=== PATIENT | male | born 1960 | race Caucasian/White ===

== ENCOUNTER → 2022-09-24 15:15 | Outpatient (BNVA) | payer OTHER, SELFPAY | PROVIDERS: PCP Internal Medicine; Visit Provider Urology | DX: Z13.89 Encounter for screening for other disorder (principal) ==

== ENCOUNTER → 2022-10-22 08:22 | Outpatient (BNVA) | payer OTHER, SELFPAY | PROVIDERS: PCP Internal Medicine; Visit Provider Urology | DX: Z13.89 Encounter for screening for other disorder (principal) ==

== ENCOUNTER 2023-06-01 08:39 | Outpatient (AMB) | payer OTHER, SELFPAY ==
--- NOTE | 2023-06-01 08:43 | A.OFFVIS_ITS ---
Intake Intake Visit Reasons: Follow up/labs(SET) Intake Note: Patient presents for follow up erectile dysfunction/elevated psa/labs (psa 3.1) (testosterone 400) Urology Medications: Finasteride, Tadalafil Blood Thinner: None Litigation Attorney Required: No Accompanied by: Self / Same As Patient Allergies No Known Allergies Allergy (Verified 06/01/23 20:58) Medication List - Last Reconciled 06/01/23 by YONI Ritchie allopurinol 100 mg PO DAILY amlodipine 5 mg PO DAILY finasteride 5 mg PO DAILY 90 days rosuvastatin 20 mg PO DAILY tadalafil 5 mg PO DAILY 90 days tadalafil (Cialis) 20 mg PO DAILY PRN 90 days HPI HPI Comments History of Present Illness Details Johnny is a very pleasant 62 year old male patient of Dr. Herrera. He has a past medical history of Hodgkin's lymphoma. He presents to the office today for follow-up of his elevated PSA and erectile dysfunction. In discussion with the patient today reports to be doing and feeling well. Recent labs reviewed with the patient today. PSAs are as follows: 05/04--8.5, 09/03--7.6, 03/05--3.1 Testosterone 03/05--400, SHBG--29.5, free testosterone 8.23. When asked patient reports compliance with 5 mg of Cialis daily and 5mg of Finasteride. He reports he continues with erectile dysfunction despite 5 mg of tadalafil daily. Discussed additional dosing p.r.n. 1 hour prior to sexual activity. Patient otherwise denies any bothersome urinary issues or concerns at this time. He reports to be happy with current voiding parameters. PREVIOUS OFFICE NOTE INFORMATION------- Hypogonadism Prior Labs - 10/05 T 326 F 7.4 - LH 5.4 Elevated PSA Prior evaluation in number of years ago At that point in time had responded to finasteride Current therapy finasteride daily Discussed factors that can lead to short-term elevation PSA 05/04 8.5, 09/03 7.6 Imaging - MRI 09/03 50 g prostate, no clear susp icious region PFSH Medical History Hodgkin's lymphoma Review of Systems Const Reports as per HPI Eyes Reports no additional complaints ENT Reports no additional complaints Card Reports no additional complaints Resp Reports no additional complaints GI Reports no additional complaints Reports as per HPI Musc Reports no additional complaints Neuro Reports no additional complaints Psych Reports no additional complaints Endo Reports no additional complaints Haroon/Lymph Reports as per HPI Physical Exam Const General: cooperative, healthy appearing, comfortable, no acute distress, well developed, alert and awake Orientation/consciousness: patient oriented x3 HEENT Head: Yes normal to inspection, Yes normocephalic and Yes atraumatic Ears: hearing grossly normal bilaterally Eyes General: appearance normal, both eyes and all related structures Neck Neck: Yes normal visual inspection and Yes trachea midline Chest Chest palpation & inspection: normal inspection of the chest Resp Effort & Inspection: normal respiratory effort and able to speak in complete sentences Cardio Rate: regular rate GI Inspection: Yes normal to inspection General: Yes no CVA tenderness Back/Spine/Pelvis Back: no CVA tenderness Skin General skin exam: no rashes or lesions noted Neuro General: patient oriented x3 Extrem General: Yes normal to inspection Psych Appearance: grossly normal and well kempt Mental Status: mental status grossly normal Speech and movement: Normal speech and movement present and Clear speech present Affect: normal affect Attitude: cooperative Thought process: Normal thought process present Thought content: Normal thought content present Insight: Fair insight present (Psych) Judgement: Fair judgement present (Psych) Results AMB Urinalysis, Automated UA Leukoctes 0 Vi/uL Last Edit by [employer] on 06/01/23 08:58 UA Nitrite Negative Last Edit by [employer] on 06/01/23 08:58 UA Urobilinogen 0.2 mg/dL Last Edit by [employer] on 06/01/23 08:58 UA Protein 0 mg/dL Last Edit by [employer] on 06/01/23 08:58 UA pH 6.0 Last Edit by [employer] on 06/01/23 08:58 UA Blood 0 Thomas/uL Last Edit by [employer] on 06/01/23 08:58 UA Specific [place] 1.020 Last Edit by [employer] on 06/01/23 08:58 UA Ketone Negative Last Edit by [employer] on 06/01/23 08:58 UA Bilirubin 0 mg/dL Last Edit by [employer] on 06/01/23 08:58 UA Glucose 0 mg/dL Last Edit by Samuel Gomez on 06/01/23 08:58 Results Reviewed Results Reviewed: Laboratory Last Values Urine pH (Auto) 6.0 06/01/23 08:45 Specific [place] (Auto) 1.020 06/01/23 08:45 Urine Protein (Auto) 0 mg/dL 06/01/23 08:45 Glucose (UA)(Auto) 0 mg/dL 06/01/23 08:45 Urine Ketones (Auto) Negative 06/01/23 08:45 Urine Blood (Auto) 0 Thomas/uL 06/01/23 08:45 Urine Nitrite (Auto) Negative 06/01/23 08:45 Urine Bilirubin (Auto) 0 mg/dL 06/01/23 08:45 Urine Urobilinogen (Auto) 0.2 mg/dL 06/01/23 08:45 Leukocyte Esterase (Auto) 0 Vi/uL 06/01/23 08:45 Assessment & Plan Assessment & Plan (1) Erectile dysfunction: Code(s): N52.9 - Male erectile dysfunction, unspecified Plan In office urinalysis results reviewed with the patient today. Recent labs (PSA, SHBG, total testosterone and free testosterone results) reviewed with the patient today; as noted above. Discussed at length potential causes for elevated PSA. Continue 5 mg of Cialis and 5 mg of finasteride as prescribed. Prescription provided for p.r.n. Cialis on demand 1 hour prior to sexual activity. Discussed at length lifestyle modifications for improvement in erectile dysfunction as well as overall health and well-being. Patient denies any bothersome urinary issues or concerns at this time. He is happy with current voiding parameters. Will obtain PSA and testosterone levels prior to next appointment. Follow-up in 6 months with labs to be completed prior; or sooner with any issues, concerns, and or questions. Orders: Orders AMB Urinalysis Automated Today Z13.9 - Encounter for screening, unspecified PSA,Total (Free>4and<10) 6 Months R97.20 - Elevated prostate specific antigen [PSA] Testosterone, Free/Total 6 Months N52.9 - Male erectile dysfunction, unspecified, R68.82 - Decreased libido Medications: New tadalafil (Cialis) [facility] [id number] [facility] Group DR33 20 mg PO DAILY 90 days PRN 45 tabs 3RF sexual activity Patient Instructions: The patient had an opportunity to ask questions regarding the treatment plan. All questions were answered. Physical exam, labs, and imaging were discussed and reviewed in detail. As well as risks, benefits, and discussion of treatment choices. No major barriers to understanding were identified. The patient expressed understanding and agreement with the above treatment plan. The patient was made aware they should contact our office by phone for worsening of their current condition, the appearance of new symptoms, or with any questions or concerns. Compliance is encouraged with any medications and follow up testing that is ordered. It is a privilege to be allowed the opportunity to participate in? your urological care.? Again, if you have any questions or concerns If you have any questions or concerns please do not hesitate to contact me. The office is [phone]. This note is constructed using voice recognition software. While every effort has been made to ensure accuracy lodge officer errors may have been included. Yours sincerely, YONI Ritchie Coding Level of Care Code Est Pt Level 4 (13461) Diagnoses Erectile dysfunction N52.9
== END 2023-06-01 09:21 | disposition home or self-care (01) ==
PROVIDERS: PCP Internal Medicine; Visit Provider Nurse Practitioner Family
DX: N52.9 Male erectile dysfunction, unspecified (principal)
CPT/HCPCS: 99214

== ENCOUNTER → 2023-06-01 08:39 | Outpatient (BNVA) | payer OTHER, SELFPAY | PROVIDERS: PCP Internal Medicine; Visit Provider Nurse Practitioner Family | DX: N52.9 Male erectile dysfunction, unspecified (principal); R97.20 Elevated prostate specific antigen [PSA]; Z79.899 Other long term (current) drug therapy | CPT/HCPCS: 81003 ==

== ENCOUNTER 2023-11-30 08:03 | Outpatient (AMB) | payer OTHER, SELFPAY ==
--- NOTE | 2023-11-30 08:05 | MHC.OFFVIS ---
Intake Intake Visit Reasons: 6mo/ PSA(set) Intake Note: Patient presents today for a follow-up on PSA Meds- Tadalafil, Finasteride Allergies to Antibiotic- No Known Allergies Blood Thinner- None Post Void Residual:15ml Natural Remedy Consultant Required: No Accompanied by: Self / Same As Patient Allergies No Known Allergies Allergy (Verified 06/01/23 20:58) Medication List - Last Reconciled 11/30/23 by GRETEL Ritchie- allopurinol 100 mg PO DAILY amlodipine 5 mg PO DAILY finasteride 5 mg PO DAILY 90 days rosuvastatin 20 mg PO DAILY tadalafil (Cialis) 20 mg PO DAILY PRN 90 days tadalafil 5 mg PO DAILY 90 days HPI HPI Comments History of Present Illness Details Johnny is a very pleasant 63 year old male patient of Dr. Herrera. He has a past medical history of Hodgkin's lymphoma. He presents to the office today for follow-up of his elevated PSA and erectile dysfunction. In discussion with the patient today reports to be doing and feeling well. Recent labs reviewed with the patient today. PSAs are as follows: 05/04--8.5, 09/03--7.6, 03/05--3.1, 12/04 4.6 Testosterone 03/05--400, SHBG--29.5, free testosterone 8.23, Testosterone 12/04 339. When asked patient reports compliance with 5 mg of Cialis daily and 5mg of Finasteride. Discussed elevation in PSA in comparison to 6 months ago. Discussed further assessment evaluation with redraw of PSA verses MRI of the prostate verses surveillance monitoring. When asked he does report somewhat improvement in erectile dysfunction with 5 mg of Cialis daily in additional dosing 1 hour prior to sexual activity. When asked he does report noting episodes of nocturia however is drinking up to and prior to bed. He also reports noting to be more tired throughout the day and upon wakening. Discussed potential causes of these issues. Discussed and stressed the importance of healthy eating habits, increased activity, and weight management. When asked he denies urinary urgency, urinary frequency, incontinence, hematuria, dysuria, foul smelling urine, changes to urinary stream, flank pain, fever, and or chills. He is happy with his current voiding parameters. He otherwise denies any other issues or concerns at this time. PREVIOUS OFFICE NOTE INFORMATION------- Hypogonadism Prior Labs - 10/05 T 326 F 7.4 - LH 5.4 Elevated PSA Prior evaluation in number of years ago At that point in time had responded to finasteride Current therapy finasteride daily Discussed factors that can lead to short-term elevation PSA 05/04 8.5, 09/03 7.6 Imaging - MRI 09/03 50 g prostate, no clear suspicious region. [facility] Medical History Hodgkin's lymphoma Review of Systems Const Reports as per HPI Eyes Reports no additional complaints ENT Reports no additional complaints Card Reports no additional complaints Resp Reports no additional complaints GI Reports no additional complaints Reports as per HPI Musc Reports no additional complaints Neuro Reports no additional complaints Psych Reports no additional complaints Endo Reports no additional complaints Haroon/Lymph Reports as per HPI Physical Exam Const General: cooperative, healthy appearing, comfortable, no acute distress, well developed, alert and awake Orientation/consciousness: patient oriented x3 HEENT Head: Yes normal to inspection, Yes normocephalic and Yes atraumatic Ears: hearing grossly normal bilaterally Eyes General: appearance normal, both eyes and all related structures Neck Neck: Yes normal visual inspection and Yes trachea midline Chest Chest palpation & inspection: normal inspection of the chest Resp Effort & Inspection: normal respiratory effort and able to speak in complete sentences Cardio Rate: regular rate GI Inspection: Yes normal to inspection General: Yes no CVA tenderness Back/Spine/Pelvis Back: no CVA tenderness Skin General skin exam: no rashes or lesions noted Neuro General: patient oriented x3 Extrem General: Yes normal to inspection Psych Appearance: grossly normal and well kempt Mental Status: mental status grossly normal Speech and movement: Normal speech and movement present and Clear speech present Affect: normal affect Attitude: cooperative Thought process: Normal thought process present Thought content: Normal thought content present Insight: Fair insight present (Psych) Judgement: Fair judgement present (Psych) Office Procedures Post Void Residual Post Residual Void Post Void Residual (PVR): 15 [id number] Void Residual by ultrasound Results AMB Urinalysis, Automated UA Leukoctes 0 Vi/uL Last Edit by Rosaura Colin CMA on 11/30/23 08:20 UA Nitrite Negative Last Edit by Rosaura Colin CMA on 11/30/23 08:20 UA Urobilinogen 0.2 mg/dL Last Edit by Rosaura Colin, LEAD INFRASTRUCTURE ARCHITECT on 11/30/23 08:20 UA Protein 0 mg/dL Last Edit by Rosaura Colin, LEAD INFRASTRUCTURE ARCHITECT on 11/30/23 08:20 UA pH 6.0 Last Edit by Rosaura Colin, [facility] on 11/30/23 08:20 UA Blood 0 Thomas/uL Last Edit by Rosaura Colin, [facility] on 11/30/23 08:20 UA Specific [place] 1.015 Last Edit by Rosaura Colin, [facility] on 11/30/23 08:20 UA Ketone Negative Last Edit by Rosaura Colin, LEAD INFRASTRUCTURE ARCHITECT on 11/30/23 08:20 UA Bilirubin 0 mg/dL Last Edit by Rosaura Colin, LEAD INFRASTRUCTURE ARCHITECT on 11/30/23 08:20 UA Glucose 0 mg/dL Last Edit by Rosaura Colin [facility] on 11/30/23 08:20 Results Reviewed Results Reviewed: Laboratory Last Values Urine pH (Auto) 6.0 11/30/23 08:19 Specific [place] (Auto) 1.015 11/30/23 08:19 Urine Protein (Auto) 0 mg/dL 11/30/23 08:19 Glucose (UA)(Auto) 0 mg/dL 11/30/23 08:19 Urine Ketones (Auto) Negative 11/30/23 08:19 Urine Blood (Auto) 0 Thomas/uL 11/30/23 08:19 Urine Nitrite (Auto) Negative 11/30/23 08:19 Urine Bilirubin (Auto) 0 mg/dL 11/30/23 08:19 Urine Urobilinogen (Auto) 0.2 mg/dL 11/30/23 08:19 Leukocyte Esterase (Auto) 0 Vi/uL 11/30/23 08:19 Assessment & Plan Assessment & Plan (1) Erectile dysfunction: Code(s): N52.9 - Male erectile dysfunction, unspecified (2) Low libido: Code(s): R68.82 - Decreased libido (3) Elevated PSA: Code(s): R97.20 - Elevated prostate specific antigen [PSA] (4) Nocturia: Code(s): R35.1 - Nocturia Plan In office urinalysis results reviewed with the patient today; as noted above. PVR 15 mL. Recent PSA and testosterone results reviewed with the patient today; as noted above. Discussed at length importance of limiting fluids prior to bed to assist with decreasing episodes of nocturia. Discussed lifestyle modifications to assist with ED and fatigue Continue finasteride and Cialis as prescribed Continue p.r.n. dosing 1 hour prior to sexual activity as discussed and prescribed. Discussed at length elevation in PSA compared to previous PSA; however PSA has been higher when reviewing trends. Discussed further treatment options of elevation in PSA with surveillance monitoring verses redraw of PSA verses MRI of the prostate. Discussed obtaining possible retroperitoneal ultrasound for further assessment evaluation. Will reassess PSA in 4 months. Follow-up in 4 months with lab to be completed prior; or sooner with any issues, concerns, and or questions. Orders: Orders AMB Urinalysis Automated Today R33.9 - Retention of urine, unspecified AMB Post Void Residual by ultrasound Today R33.9 - Retention of urine, unspecified Prostate Specific Antigen 4 Months R97.20 - Elevated prostate specific antigen [PSA] Medications: Refilled finasteride 5 mg PO DAILY 90 days 90 tabs 3RF N13.8 - Other obstructive and reflux uropathy, N32.0 - Bladder-neck obstruction, N40.1 - Benign prostatic hyperplasia with lower urinary tract symptoms, R33.9 - Retention of urine, unspecified tadalafil (Cialis) [facility] [place] [id number] [facility] Group DR33 20 mg PO DAILY 90 days PRN 45 tabs 3RF sexual activity tadalafil 5 mg PO DAILY 90 days 90 tabs 1RF sexual activity N52.01 - Erectile dysfunction due to arterial insufficiency, R68.82 - Decreased libido Patient Instructions: The patient had an opportunity to ask questions regarding the treatment plan. All questions were answered. Physical exam, labs, and imaging were discussed and reviewed in detail. As well as risks, benefits, and discussion of treatment choices. No major barriers to understanding were identified. The patient expressed understanding and agreement with the above treatment plan. The patient was made aware they should contact our office by phone for worsening of their current condition, the appearance of new symptoms, or with any questions or concerns. Compliance is encouraged with any medications and follow up testing that is ordered. It is a privilege to be allowed the opportunity to participate in? your urological care.? Again, if you have any questions or concerns If you have any questions or concerns please do not hesitate to contact me. The office is [phone]. This note is constructed using voice recognition software. While every effort has been made to ensure accuracy four h club agent errors may have been included. Yours sincerely, YONI Ritchie Coding Level of Care Code Est Pt Level 3 (08058) Diagnoses Erectile dysfunction N52.9 Low libido R68.82 Elevated PSA R97.20 Nocturia R35.1 CPT Codes Post Residual Void - PVR CPT Code: [id number]-[id number] Void Residual by ultrasound ([id number])
== END 2023-11-30 09:07 | disposition home or self-care (01) ==
PROVIDERS: PCP Internal Medicine; Visit Provider Nurse Practitioner Family
DX: N52.9 Male erectile dysfunction, unspecified (principal); R68.82 Decreased libido; R97.20 Elevated prostate specific antigen [PSA]; R35.1 Nocturia; R33.9 Retention of urine, unspecified
CPT/HCPCS: 99213

== ENCOUNTER → 2023-11-30 08:03 | Outpatient (BNVA) | payer OTHER, SELFPAY | PROVIDERS: PCP Internal Medicine; Visit Provider Nurse Practitioner Family | DX: N52.9 Male erectile dysfunction, unspecified (principal); R68.82 Decreased libido; R97.20 Elevated prostate specific antigen [PSA]; R35.1 Nocturia; R33.9 Retention of urine, unspecified; Z79.899 Other long term (current) drug therapy | CPT/HCPCS: 51798; 81003 ==

== ENCOUNTER 2024-12-25 07:43 | Outpatient (AMB) | payer OTHER, SELFPAY ==
--- NOTE | 2024-12-25 07:43 | A.OFFVIS_ITS ---
Intake Visit Reasons: 1y follow up/ High PSA(set) Intake Note: Patient presents today for tele visit follow-up on: Elevated PSA PSA: 11.3 Meds- Tadalafil, Finasteride (patient stated that he stopped finasteride) Allergies to Antibiotic- No Known Allergies Blood Thinner- None Project Specialist Required: No Accompanied by: Self / Same As Patient Allergies No Known Allergies Allergy (Verified 12/25/24 07:59) Medication List - Last Reconciled 12/25/24 by GRETEL Ritchie- allopurinol 100 mg PO DAILY amlodipine 5 mg PO DAILY rosuvastatin 20 mg PO DAILY tadalafil (Cialis) 20 mg PO DAILY PRN 90 days tadalafil 5 mg PO DAILY 90 days HPI Comments Details: Johnny is a very pleasant 64 year old male patient of Dr. Hrerera. He has a past medical history of Hodgkin's lymphoma. He is being followed up on today via video telehealth for his elevated PSA and erectile dysfunction. In discussion with the patient today he reports having had to reschedule his appointment due to respiratory and cardiac issues he had been experiencing late last year. He discusses having recently started Lasix for potential dilated cardiomyopathy with cardiology and continues to follow-up as scheduled. He reports noting episodes of urinary urgency and frequency in relation to Lasix. He also reports noting urinary dribbling upon morning urination he otherwise denies hematuria, dysuria, foul smelling urine, changes to urinary stream, flank pain, fever, and or chills. He is happy with his current voiding parameters. Recent PSA results were reviewed with the patient today as noted and trended below: PSA: 05/04 8.5, 09/03 7.6, 03/05 3.1, 12/04 4.6, 12/05 11.3 Testosterone 03/05 400, SHBG 29.5, free testosterone 8.23, Testosterone 12/04 339. In discussion with the patient today he reports having stopped Finasteride. We discussed potential causes of elevated PSA. Patient with a previous history of prostate MRI 09/03 that noted seminal vesicles within normal limits, the prostate capsule is intact. No suspicious signal in the region of the neurovascular bundle. No disruption to the fascicle planes between the prostate and the rectum. No focal finding to strongly suggest a site of clinical signi ficant prostate cancer. No evidence of extraprostatic extension. No regional metastasis were identified on the study. Overall PI-RADS category 2. He discusses his longstanding history of elevated PSAs with variability and believes this is related to his Hodgkin's lymphoma. We discussed repeat in MRI as well as further treatment options to include prostate biopsy and or surveillance monitoring. Risks and benefits of these as for mentioned interventions were discussed in detail. [facility] Medical History Hodgkin's lymphoma Review of Systems Const Reports as per HPI Eyes Reports no additional complaints ENT Reports no additional complaints Card Reports as per HPI Resp Reports no additional complaints GI Reports no additional complaints Reports as per HPI Musc Reports no additional complaints Neuro Reports no additional complaints Psych Reports no additional complaints Endo Reports no additional complaints Haroon/Lymph Reports as per HPI Physical Exam Const General: cooperative, healthy appearing, comfortable, no acute distress, well developed, alert and awake Orientation/consciousness: patient oriented x3 Resp Effort & Inspection: normal respiratory effort and able to speak in complete sentences Neuro General: patient oriented x3 Psych Appearance: grossly normal Mental Status: mental status grossly normal Speech and movement: Clear speech present Affect: normal affect Attitude: cooperative Thought process: Normal thought process present Thought content: Normal thought content present Insight: Fair insight present (Psych) Judgement: Fair judgement present (Psych) Telehealth Telehealth Telehealth Platform: [facility] Location of provider rendering services: practice address Location of patient: address on file Patient Identification confirmed using: Name, : Yes Telehealth method: video Patient verbally consented to treatment: Yes Patient verbally consented to billing insurance company: Yes Patient informed of any privacy concerns related to visit: Yes Minutes spent on Phone/Video with Pt.: 15 Assessment & Plan Assessment & Plan (1) Elevated PSA: Code(s): R97.20 - Elevated prostate specific antigen [PSA] Category: Medical (2) Urinary dribbling: Code(s): N39.43 - Post-void dribbling Category: Medical Plan We discussed at length potential causes of elevated PSA as well as further treatment options and risks and benefits of these treatment options. Restart finasteride as discussed Will obtain redraw of PSA with no sex the night before, no caffeine morning of, and no heavy lifting 1-2 days prior. We discussed pelvic floor exercises for urinary dribbling. Will obtain MRI for further assessment evaluation. Follow-up in 1-2 months with imaging and PSA to be completed prior; or sooner with any issues, concerns, and or questions Orders: Orders PSA,Total (Free>4and<10) Today R97.20 - Elevated prostate specific antigen [PSA] MR pelvis wo/w con Today C61 - Malignant neoplasm of prostate Medications: Refilled finasteride 5 mg PO DAILY 90 tabs 3RF 90 days N13.8 - Other obstructive and reflux uropathy, N32.0 - Bladder-neck obstruction, N40.1 - Benign prostatic hyperplasia with lower urinary tract symptoms, R33.9 - Retention of urine, unspecified Patient Instructions: The patient had an opportunity to ask questions regarding the treatment plan. All questions were answered. Physical exam, labs, and imaging were discussed and reviewed in detail. As well as risks, benefits, and discussion of treatment choices. No major barriers to understanding were identified. The patient expressed understanding and agreement with the above treatment plan. The patient was made aware they should contact our office by phone for worsening of their current condition, the appearance of new symptoms, or with any questions or concerns. Compliance is encouraged with any medications and follow up testing that is ordered. It is a privilege to be allowed the opportunity to participate in? your urological care.? Again, if you have any questions or concerns If you have any questions or concerns please do not hesitate to contact me. The office is [phone]. This note is constructed using voice recognition software. While every effort has been made to ensure accuracy fly tier errors may have been included. Yours sincerely, YONI Ritchie Coding Level of Care Code Tele Est Pt Level 3 (51549) Complex EM visit Add On G2211 Diagnoses Elevated PSA R97.20 Urinary dribbling N39.43
--- OUTSIDE RECORDS SUMMARY | 2024-12-25 07:45 | XMS_ITS | Clinical Summary ---
Author Organization [facility] Address [address] [place] [address] Care Team Providers Care Lubrication Servicer Name Role Phone John Herrera MD Primary Care Provider Allergies No known active allergies Medications Medication Sig Dispensed Refills Start Date End Date Status amLODIPine (NORVASC) tablet 5 mg Take 5 mg by mouth daily. 0 Active Multiple Vitamin (MULTI VITAMIN DAILY PO) Take by mouth. 0 Act austyn pravastatin (PRAVACHOL) tablet 40 mg Take 40 mg by mouth daily. 0 Active NIFEdipine (PROCARDIA) 10 MG capsule Take 10 mg by mouth 3 (three) times a day. 0 Active Active Problems No known active problems Social History Tobacco Use Types Packs/Day Years Used Date Smoking Tobacco: Never Assessed Sex and Gender Information Value Date Recorded Sex Assigned at Not on file Gender Identity Not on file Sexual Orientation Not on file Last Filed Vital Signs Vital Sign Reading Time Taken Comments Blood Pressure 134/93 10/18/2017 10:51 AM EST Pulse 84 10/18/2017 10:51 AM EST Temperature - - Respiratory Rate - - Oxygen Saturation - - Inhaled Oxygen Concentration - - Weight 104.8 kg (231 lb) 10/18/2017 10:51 AM EST Height 188 cm (6' 2 ) 10/18/2017 10:51 AM EST Body Mass Index 29.66 10/18/2017 10:51 AM EST Plan of Treatment Health Maintenance Due Date Last Done Comments Hepatitis C Screening 1962 COVID-19 Vaccine (#1) 1962 Depression Screening 1974 Preventative Health Evaluation 1980 DTap / Tdap / Td (1 - Tdap) 1981 Colon Cancer Screening (Colonoscopy) 2007 Shingrix-Zoster Vaccine (1 of 2) 2012 Influenza Vaccine (#1) 2024 RSV Adult > 60+ Yrs or Pregn ant (1 - 1-dose 75+ series) 2037 Hepatitis B Vaccines Aged Out No long er eligible based on patient's age to complete this topic Pneumococcal Vaccine Aged Out No long er eligible based on patient's age to complete this topic RSV Ped < 20 months Aged Out No longe r eligible based on patient's age to complete this topic Care Teams Lubrication Servicer Relationship Specialty Start Date End Date John Herrera MD PCP - General Internal Medicine 04/13/17
== END 2024-12-25 09:06 | disposition home or self-care (01) ==
LOC: HO.HUSH 07:43
PROVIDERS: PCP Internal Medicine; Visit Provider Nurse Practitioner Family
DX: R97.20 Elevated prostate specific antigen [PSA] (principal); N39.43 Post-void dribbling
CPT/HCPCS: 99213

== ENCOUNTER → 2024-12-25 07:43 | Outpatient (BNVA) | payer OTHER, SELFPAY | PROVIDERS: PCP Internal Medicine; Visit Provider Nurse Practitioner Family ==

== ENCOUNTER → 2025-01-09 08:17 | Outpatient (BNV) | payer OTHER, SELFPAY | PROVIDERS: PCP Internal Medicine; Visit Provider Radiology Diagnostic Radiology | DX: C61 Malignant neoplasm of prostate (principal) | CPT/HCPCS: 72197 ==

== ENCOUNTER 2025-01-09 08:25 | Outpatient (REF) | payer OTHER, SELFPAY ==
--- NOTE | ~2025-01-09 | MR_ITS ---
EXAMINATION: MR PROSTATE WITHOUT THEN WITH IV CONTRAST HISTORY: C61 - Malignant neoplasm of prostate TECHNIQUE: 1.5T body coil survey of the pelvis was performed. Phase array coil imaging of the prostate was performed in multiplanar high resolution axial, coronal, sagittal fast spin echo T2 and axial T1 weighted imaging sequences. Axial diffusion imaging at intermediate and high field performed with ADC mapping. Next, mL Gadavist was given by intravenous infusion, and dynamic axial imaging performed. COMPARISON: There are no prior studies for comparison. CLINICAL DATA: Most recent PSA: 11.3 ng/mL on 11/28/2024. PSA Density: 0.25 ng/mL squared Prostate Biopsy: None reported FINDINGS: Prostate size: 4.6 x 4.6 x 3.1 cm. Calculated prostate volume is 45.1 mL. Hemorrhage: None. Transitional Zone: There is moderate heterogeneous nodular hypertrophy of the transitional zone. Peripheral Zone: There are numerous linear foci of decreased T2 signal intensity within the peripheral zone which can be seen in the setting of prostatitis of scarring. There is a 1.5 cm focus of abnormal signal intensity in the anterior aspect of the right peripheral zone in the mid gland (series 7, image 26) with imaging characteristics as follows: Lesion #1: DWI PI-RADS v2.1 score: 5 T2 PI-RADS v2.1 score: 5 DCE PI-RADS v2.1 score: - Overall PI-RADS v2.1 score: 5 Capsular contact: yes Extracapsular extension: No definite Seminal vesicle invasion: None Neurovascular bundle involvement: None Seminal Vesicles/Ejaculatory Ducts: Symmetric and normal in signal and caliber. Pelvic Lymph Nodes: No obturator or internal iliac lymph nodes meeting size criteria for adenopathy. Marrow Signal: Normal marrow signal and enhancement without focal lesion identified. MR/MR Prostate wo/w con IMPRESSION: Focus of abnormal signal intensity in the right anterior peripheral zone in the mid gland are suspicious for clinically significant prostate carcinoma. PI-RADS 5: Very high (clinically significant cancer is highly likely to be present) PI-RADS Assessment Categories PI-RADS 1: Very low (clinically significant cancer is highly unlikely to be present) PI-RADS 2: Low (clinically significant cancer is unlikely to be present) PI-RADS 3: Intermediate (the presence of clinically significant cancer is equivocal) PI-RADS 4: High (clinically significant cancer is likely to be present) PI-RADS 5: Very high (clinically significant cancer is highly likely to be present) [employer]. MR Prostate Imaging Reporting and Data System version 2.1. [email or web address] Electronically signed by: Adilson Mora MD 01/10/2025 01:57 PM EDT
--- OUTSIDE RECORDS SUMMARY | 2025-01-09 08:43 | XMS_ITS | Clinical Summary ---
Author Organization [facility] Address [address] [place] [address] Care Team Providers Care Acoustic Engineer Name Role Phone John Herrera MD Primary [...] age to complete this topic Care Teams Acoustic Engineer Relationship Specialty Start Date End Date John Herrera MD PCP - General Internal Medicine 04/13/17
[2025-01-09] MEDS: gadobutroL 10 ML VIAL IVPUSH (09:34)
== END 2025-01-09 08:26 | disposition home or self-care (01) ==
LOC: HO.MRI 08:25
PROVIDERS: PCP Internal Medicine; Visit Provider Nurse Practitioner Family
DX: C61 Malignant neoplasm of prostate (principal)
CPT/HCPCS: 72197; A9585

== ENCOUNTER 2025-02-12 07:42 | Outpatient (AMB) | payer OTHER, SELFPAY ==
--- NOTE | 2025-02-12 07:42 | A.OFFVIS_ITS ---
Intake Visit Reasons: 2 month/ MRI/PSA(set) Intake Note: Patient presents today for tele visit follow-up on: Elevated PSA and MRI results PSA: 6.5 Imaging Completed: 01/09/25 Meds: Tadalafil, Finasteride Allergies to Antibiotic- No Known Allergies Blood Thinner- None Sales Department Clerk Required: No Accompanied by: Self / Same As Patient Allergies No Known Allergies Allergy (Verified 02/12/25 13:49) Medication List - Last Reconciled 02/12/25 by GRETEL Ritchie- allopurinol 100 mg PO DAILY amlodipine 5 mg PO DAILY dapagliflozin propanediol (Farxiga) 10 mg PO DAILY finasteride 5 mg PO DAILY 90 days furosemide 20 mg PO DAILY losartan 25 mg PO DAILY rosuvastatin 40 mg PO DAILY tadalafil (Cialis) 20 mg PO DAILY PRN 90 days tadalafil 5 mg PO DAILY 90 days HPI Comments Details: Johnny is a very pleasant 64 year old male patient of Dr. Herrera. He has a past medical history of Hodgkin's lymphoma and dilated cardiomyopathy. He is being followed up on today via video telehealth for his elevated PSA and erectile dysfunction and is accompanied by his significant other Racquel at [facility] office visit. In discussion with the patient today reports to be doing and feeling well. Of note, patient was last seen approximately 2 months ago at which time an MRI of the prostate and redraw of PSA were ordered for further assessment evaluation. These results were reviewed and communicated with the patient and his significant other today. 01/05 focus of abnormal signal intensity in the right anterior peripheral zone in the mid gland suspicious for clinically significant prostate carcinoma. PSAs and labs are as follows: PSA: 05/04 8.5, 09/03 7.6, 03/05 3.1, 12/04 4.6, 12/05 11.3, 01/05 6.5 % free PSA 7.2. Testosterone 03/05 400, SHBG 29.5, free testosterone 8.23, Testosterone 12/04 339. We discussed at length potential causes of elevated PSA. He reports compliance with finasteride as prescribed. We discuss significant decrease in PSA over the last few weeks as well as variable/labile PSAs. He does continue to report issues with his erections. We did discussed further treatment options of ED and risks and benefits of these treatment options. Plan will be to revisit ED in the near future. We discussed further treatment options of labile/elevated PSA to include prostate biopsy verses targeted prostate biopsy verses surveillance monitoring. Risks and benefits of these interventions were discussed. Will proceed with targeted biopsy. When asked he does report noting episodes of urinary urgency and frequency however relates this to his Lasix he otherwise denies hematuria, dysuria, foul smelling urine, changes to urinary stream, flank pain, fever, and or chills. He is happy with his current voiding parameters. Patient with a previous history of prostate MRI 09/03 that noted seminal vesicles within normal limits, the prostate capsule is intact. No suspicious signal in the region of the neurovascular bundle. No disruption to the fascicle planes between the prostate and the rectum. No focal finding to strongly suggest a site of clinical significant prostate cancer. No evidence of extraprostatic extension. No regional metastasis were identified on the study. Overall PI-RADS category 2. He discusses his longstanding history of elevated PSAs with diann gould and believes this is related to his Hodgkin's lymphoma. All questions were answered. He otherwise offers no other issues or concerns at this time. [facility] Medical History Hodgkin's lymphoma Review of Systems Const Reports as per HPI Eyes Reports no additional complaints ENT Reports no additional complaints Card Reports as per HPI Resp Reports no additional complaints GI Reports no additional complaints Reports as per HPI Musc Reports no additional complaints Neuro Reports no additional complaints Psych Reports no additional complaints Endo Reports no additional complaints Haroon/Lymph Reports as per HPI Physical Exam Const General: cooperative, healthy appearing, comfortable, no acute distress, well developed, alert and awake Orientation/consciousness: patient oriented x3 Resp Effort & Inspection: normal respiratory effort and able to speak in complete sentences Neuro General: patient oriented x3 Psych Appearance: well kempt Speech and movement: Clear speech present Affect: normal affect Attitude: cooperative Thought content: Normal thought content present Insight: Fair insight present (Psych) Judgement: Fair judgement present (Psych) Telehealth Telehealth Telehealth Platform: [email or web address] Location of provider rendering services: practice address Patient Identification confirmed using: Name, : Yes Telehealth method: video Patient verbally consented to treatment: Yes Patient verbally consented to billing insurance company: Yes Patient informed of any privacy concerns related to visit: Yes Minutes spent on Phone/Video with Pt.: 20 Results Reviewed Results Reviewed: Date of Service: 01/09/25 Procedure(s): MR Prostate wo/w con FINDINGS: Prostate size: 4.6 x 4.6 x 3.1 cm. Calculated prostate volume is 45.1 mL. Hemorrhage: None. Transitional Zone: There is moderate heterogeneous nodular hypertrophy of the transitional zone. Peripheral Zone: There are numerous linear foci of decreased T2 signal intensity within the peripheral zone which can be seen in the setting of prostatitis of scarring. There is a 1.5 cm focus of abnormal signal intensity in the anterior aspect of the right peripheral zone in the mid gland (series 7, image 26) with imaging characteristics as follows: Lesion #1: DWI PI-RADS v2.1 score: 5 T2 PI-RADS v2.1 score: 5 DCE PI-RADS v2.1 score: - Overall PI-RADS v2.1 score: 5 Capsular contact: yes Extracapsular extension: No definite Seminal vesicle invasion: None Neurovascular bundle involvement: None Seminal Vesicles/Ejaculatory Ducts: Symmetric and normal in signal and caliber. Pelvic Lymph Nodes: No obturator or internal iliac lymph nodes meeting size criteria for adenopathy. Marrow Signal: Normal marrow signal and enhancement without focal lesion identified. IMPRESSION: Focus of abnormal signal intensity in the right anterior peripheral zone in the mid gland are suspicious for clinically significant prostate carcinoma. PI-RADS 5: Very high (clinically significant cancer is highly likely to be present) PI-RADS Assessment Categories PI-RADS 1: Very low (clinically significant cancer is highly unlikely to be present) PI-RADS 2: Low (clinically significant cancer is unlikely to be present) PI-RADS 3: Intermediate (the presence of clinically significant cancer is equivocal) PI-RADS 4: High (clinically significant cancer is likely to be present) PI-RADS 5: Very high (clinically significant cancer is highly likely to be presen Assessment & Plan Assessment & Plan (1) Urinary dribbling: Code(s): N39.43 - Post-void dribbling Category: Medical (2) Nocturia: Code(s): R35.1 - Nocturia Category: Medical (3) Erectile dysfunction: Code(s): N52.9 - Male erectile dysfunction, unspecified Category: Medical (4) Elevated PSA: Code(s): R97.20 - Elevated prostate specific antigen [PSA] Category: Medical Plan: Risks, benefits and alternatives to therapy were discussed. These include but are not limited to infection, bleeding, damage to local organs and tissues, need for further interventions. ? Anesthetic risks regarding cardiac arrhythmia, blood clots, and potential mortality were discussed. The patient understands the typical recovery time and the outpatient nature of t he procedure. After consideration of these risks the patient gives full informed consent and they wish to move ahead with the procedure. Plan Recent prostate MRI results reviewed with the patient and his significant other today Recent PSA results were reviewed We discussed potential causes of variable PSA as well as further treatment options and risks and benefits of these treatment options Continue finasteride as discussed and prescribed We discussed further treatment options of erectile dysfunction and risks and benefits of these treatment options Continue 5 mg of Cialis daily Will schedule for targeted prostate biopsy as discussed. Follow-up per doctor's orders; or sooner with any issues, concerns, and or questions. Medications: Refilled tadalafil 5 mg PO DAILY 90 days 90 tabs 1RF sexual activity N52.01 - Erectile dysfunction due to arterial insufficiency, R68.82 - Decreased libido Patient Instructions: The patient had an opportunity to ask questions regarding the treatment plan. All questions were answered. Physical exam, labs, and imaging were discussed and reviewed in detail. As well as risks, benefits, and discussion of treatment choices. No major barriers to understanding were identified. The patient expressed understanding and agreement with the above treatment plan. The patient was made aware they should contact our office by phone for worsening of their current condition, the appearance of new symptoms, or with any questions or concerns. Compliance is encouraged with any medications and follow up testing that is ordered. It is a privilege to be allowed the opportunity to participate in? your urological care.? Again, if you have any questions or concerns If you have any questions or concerns please do not hesitate to contact me. The office is [phone]. This note is constructed using voice recognition software. While every effort has been made to ensure accuracy maths tutor errors may have been included. Yours sincerely, GRETEL Ritchie-BC Coding Level of Care Code Tele Est Pt Level 4 (29441) Complex EM visit Add On G2211 Diagnoses Urinary dribbling N39.43 Nocturia R35.1 Erectile dysfunction N52.9 Elevated PSA R97.20
--- OUTSIDE RECORDS SUMMARY | 2025-02-12 07:44 | XMS_ITS | Clinical Summary ---
Author Organization [facility] Address [address] [place] [address] Care Team Providers Care Flour Broker Name Role Phone John Herrera MD Primary [...] Vaccine (1 of 2) 2012 Influenza Vaccine (Season Ended) 2025 RSV Adult > 60+ Yrs or Pregn [...] age to complete this topic Care Teams Flour Broker Relationship Specialty Start Date End Date John Herrera MD PCP - General Internal Medicine 04/13/17
== END 2025-02-12 08:56 | disposition home or self-care (01) ==
LOC: HO.HUSH 07:42
PROVIDERS: PCP Internal Medicine; Visit Provider Nurse Practitioner Family
DX: N39.43 Post-void dribbling (principal); R35.1 Nocturia; N52.9 Male erectile dysfunction, unspecified; R97.20 Elevated prostate specific antigen [PSA]
CPT/HCPCS: 99214

== ENCOUNTER 2025-04-23 09:06 | Day surgery (SDC) | payer OTHER, SELFPAY ==
--- OUTSIDE RECORDS SUMMARY | 2025-04-02 07:58 | XMS_ITS | Clinical Summary ---
Author Organization [facility] Address [address] [place] [address] Care Team Providers Care Streetcar Operator Name Role Phone John Herrera MD Primary [...] (1 of 2) 2012 Influenza Vaccine (#1) 2025 RSV Adult > 60+ Yrs or [...] age to complete this topic Care Teams Streetcar Operator Relationship Specialty Start Date End Date John Herrera MD PCP - General Internal Medicine 04/13/17
--- OUTSIDE RECORDS SUMMARY | 2025-04-02 07:58 | XMS_ITS | Clinical Summary ---
Author Organization [facility] Address [address] [place] [address] Phone Care Team Providers Care Electrical Prospector Name Role Phone John Herrera MD Primary Care Provider Encounters Date Type Department Care Team Description [facility] [facility] [address] [place] [id number] Tiffani Aden MA from Last 3 Months Social History Tobacco Use Types Packs/Day Years Used Date Smoking Tobacco: Never Assessed Sex and Gender Information Value Date Recorded Sex Assigned at Not on file Legal Sex Male 6:11 PM EST Gender Identity Not on file Sexual Orientation Not on file Plan of Treatment Health Maintenance Due Date Last Done Comments DTaP,Tdap,and Td Vaccines (1 - Tdap) 1981 Pneumococcal Vaccine: 50+ Ye ars (1 of 1 - PCV) 2012 Zoster Vaccines (1 of 2) 2012 Cholesterol Screening (Lipid Panel) 08/15/2022 Colorectal Cancer Screening: Colonoscopy 08/15/2022 HIV Screening 08/15/2022 Hepatitis C Screening 08/15/2022 Social Influencers of Health Screening 08/15/2022 COVID-19 Vaccine (1 - 2023-2 5 season) 2024 Depression Screening 09/13/2024 Influenza Vaccine (#1) 2025 RSV Immunization Adult Patie nts (1 - 1-dose 75+ series) 2037 HIB Vaccines Aged Out No longer eligi ble based on patient's age to complete this topic HPV Vaccines Aged Out No longer eligi ble based on patient's age to complete this topic Hepatitis A Vaccines Aged Out No long er eligible based on patient's age to complete this topic Hepatitis B Vaccines Aged Out No long er eligible based on patient's age to complete this topic IPV Vaccines Aged Out No longer eligi ble based on patient's age to complete this topic MMR Vaccines Aged Out No longer eligi ble based on patient's age to complete this topic Meningococcal ACWY Vaccine Aged Out N o longer eligible based on patient's age to complete this topic Meningococcal B Vaccine Aged Out No l onger eligible based on patient's age to complete this topic RSV Immunization Patients Un lizzy 20 months Aged Out No longer eligible b ased on patient's age to complete this topic Varicella Vaccines Aged Out No longer eligible based on patient's age to complete this topic Insurance [employer] Care Teams Electrical Prospector Relationship Specialty Start Date End Date John Herrera MD [address] [place] [id number] PCP - General Internal Medicine 04/13/17
[2025-04-19 13:04] VITALS: BMI 32.7
--- NOTE | 2025-04-20 12:07 | HO.ANESPROP2 ---
Documented by User: Cara Chan NP 04/27/25 12:38 HPI - Anesthesia Eval Consult details Narrative: 64yo M for targeted Prostate Needle Biopsy Follows [facility] Cardiology for htn, HFpEF. Stable at 10/2024 office visit with routine 6 month f/u. (ECHO and Nuc Stress 2023 OK) Per pt, some POP and wheezing early 2024. Improved with pulmo visits and trelegy inhaler. Currently, denies SOB, CP, edema with working on feet all day. Anesthesia Pre-Procedure Meds Is the patient on any of the following meds?: SGLT2 Inhib PMFSH Active Problems Active Problems: All Active Problems Urinary dribbling (Acute) Nocturia (Acute) Erectile dysfunction (Acute) Low libido (Acute) Bladder outlet obstruction (Acute) Elevated PSA (Acute) Past Medical History Medical History (Updated 04/23/25 @ 09:36 by Alejandra Dela Cruz RN) (HFpEF) heart failure with preserved ejection fraction Mild asthma HLD (hyperlipidemia) HTN (hypertension) Gout Hodgkin's lymphoma Surgical History Surgical History (Updated 04/23/25 @ 09:36 by Alejandra Dela Cruz RN) History of lung surgery History of bronchoscopy Social History Social History Patient Tobacco Use Status: Never used Tobacco Meds Allergies Allergy/AdvReac Type Severity Reaction Status Date / Time No Known Allergies Allergy Verified 04/23/25 09:37 Home Medications ?Medication ?Instructions ?Recorded ?Confirmed ?Last Taken ?Type allopurinol 100 mg tablet 100 mg PO DAILY 08/26/22 04/23/25 Unknown History amlodipine 5 mg tablet 5 mg PO DAILY 08/26/22 04/23/25 Unknown History dapagliflozin propanediol 10 mg 10 mg PO DAILY 02/12/25 04/23/25 Unknown History tablet (Farxiga) furosemide 20 mg tablet 20 mg PO DAILY 02/12/25 04/23/25 Unknown History losartan 25 mg tablet 25 mg PO DAILY 02/12/25 04/23/25 Unknown History rosuvastatin 40 mg tablet 40 mg PO DAILY 02/12/25 04/23/25 Unknown History fluticasone fur. 100 mcg-umeclid 1 ea inhalation DAILY 04/23/25 04/23/25 Unknown History 62.5 mcg-vilant 25 mcg inhalat.powder (Trelegy Ellipta) Exam Height,Weight and Vital Signs: Height 6 ft 2 in Weight 115.666 kg Pertinent Lab Results Pertinent Lab Results: CMP 11/2024 WNL CBC 09/2024 WNL Narrative Narrative: EKG 11/2024 NSR @ 71 Per 10/2024 cardiology office visit note Assessment and Plan Assessment Anesthesia Assessment: Chart Reviewed Documented by User: Darshan Lawson MD 05/02/25 16:23 [facility] Past Medical History Medical History (Updated 04/23/25 @ 09:36 by Alejandra Dela Cruz RN) (HFpEF) heart failure with preserved ejection fraction Mild asthma HLD (hyperlipidemia) HTN (hypertension) Gout Hodgkin's lymphoma Family History Family history of problems with anesthesia: No Surgical History Surgical History (Updated 04/23/25 @ 09:36 by Alejandra Dela Cruz RN) History of lung surgery History of bronchoscopy History of Problems with Anesthesia: No Social History Social History Patient Tobacco Use Status: Never used Tobacco Meds Allergies Allergy/AdvReac Type Severity Reaction Status Date / Time No Known Allergies Allergy Verified 04/23/25 09:37 Home Medications ?Medication ?Instructions ?Recorded ?Confirmed ?Last Taken ?Type allopurinol 100 mg tablet 100 mg PO DAILY 08/26/22 04/23/25 Unknown History amlodipine 5 mg tablet 5 mg PO DAILY 08/26/22 04/23/25 Unknown History dapagliflozin propanediol 10 mg 10 mg PO DAILY 02/12/25 04/23/25 Unknown History tablet (Farxiga) furosemide 20 mg tablet 20 mg PO DAILY 02/12/25 04/23/25 Unknown History losartan 25 mg tablet 25 mg PO DAILY 02/12/25 04/23/25 Unknown History rosuvastatin 40 mg tablet 40 mg PO DAILY 02/12/25 04/23/25 Unknown History fluticasone fur. 100 mcg-umeclid 1 ea inhalation DAILY 04/23/25 04/23/25 Unknown History 62.5 mcg-vilant 25 mcg inhalat.powder (Trelegy Ellipta) Exam Airway Mallampati Class: II TM Dist: <=3cm Neck ROM: Full Heart: ok Lungs: ok Assessment and Plan Assessment Anesthesia Assessment: Anesthesia Plan Discussed Final Anesthetic Review Family History of Problems with Anesthesia: No History of Problems with Anesthesia: No NPO: Yes ASA Class: III Final Preanesthetic Review: No Changes in Pt Med Stat, Meds/Allgs Chart Reviewed, Consent Obtained/Reviewed and Anes Risks/Benef Reviewed Patient Risk: Intermediate Procedure Risk: Low Anesthetic Plan Anesthetic Plan: GA and Agree w/ Assess. and Plan Disposition: Standard PACU
[2025-04-23 09:41] VITALS: BMI 32.0
[2025-04-23 09:42] VITALS: BP 146/88; PULSE 80; RESP 15; TEMP 36.7; O2SAT 97
[2025-04-23] MEDS: Lactated Ringers 1,000 ML 50 ML IVCONT (10:10)
--- NOTE | 2025-04-23 11:26 | MHC.SHP ---
Pre-Procedural Eval Section A - 24 Hr Update-Section A only Date of Service: 04/23/25 The patient is an INPATIENT: No Changes since office visit: No Cold of Flu in the past 2 weeks, No New Medical Problems, No Changes in Medication and No Patient answered all questions The patient has been examined within 24 hours of the surgical procedure. The History & Physical has been completed within 30 days and I have reviewed it.: Yes Section B - Complete if H&P > 30 days Chief Complaint: Elevated prostate specific antigen [PSA] Details of Present Illness: Perineal prostate targeted biopsy Relevant Social History: None Present Medications: see Short Stay Collaborative assessment Medical History: No relevant PMH History of Previous Operations: No relevant previous surgery Allergies: Allergies Allergy/AdvReac Type Severity Reaction Status Date / Time No Known Allergies Allergy Verified 04/23/25 09:37 Review of Systems Sugical H&P ROS: Negative: Constitution, Cardiovascular, Respiratory, Neurological, Psychiatric, Hem-Onc, Allergic/Immunologic, Gastrointestinal, Genitourinary, Musculoskeletal, Integumentary, Endocrine and Eyes/Ears/Nose/Throat Exam Surgical H&P Exam: Normal: HEENT, Normal: Heart, Normal: Lungs, Normal: Extremities, Normal: Abdomen, Normal: Skin and Normal: Neurological Plan Diagnosis/Plan: Unchanged (Perineal targeted prostate biopsy) I have reviewed the history and physical and performed a pertinent physical examination on my patient. No changes have occurred unless specified. Time Spent With Patient Time: Total time managing care of this patient today ____ minutes.
--- NOTE | 2025-04-23 12:15 | W.PM.OPN ---
Operative Note Operative Note Date of Service: 04/23/25 Narrative: Preoperative diagnosis: Elevated PSA Postoperative diagnosis: Elevated PSA Procedure: 1. transrectal ultrasound-guided pudendal nerve block 2. MRI-US fusion image registration performed 3. transperineal ultrasound-guided prostate biopsy 14 core including targets Surgeon: Dr. Jarret Barragan Anesthetic: Sedation plus local Indications for procedure: Elevated PSA - prostate MRI with right mid peripheral zone 1.5 cm PI-RADS 4 lesion Procedure: After informed consent was verified, the patient was brought into the procedure area. Patient identity confirmed. Perioperative antibiotics confirmed. Safety pause time out performed. Anesthesia performed per protocol. Scrotum taped out of operative area. Iodine prep used. Perineal injection of local anesthetic. Digital guided prostate pudendal nerve block performed with 10 cc of 1% lidocaine. 5cc each side. Combination 10cc iodine with 50cc gel was mixed and placed in the rectum. Ultrasound probe was placed per rectum. Ultrasound probe stabilized on a prostate stepper with attached grid. [employer] software and hardware platform used for US image acquisition, US 3D model creation and MRI-US fusion image overlay. Ultrasound placement was made with external grid calibration for height and prostate diameter in both the transverse and longitudinal planes. Grid A-C covering right prostate and c-F covering left prostate. Numbers 1.0-2.5 covering posterior prostate and 2.5-4.0 covering anterior prostate. Once grid calibration was confirmed prostate ultrasound data acquisition was performed in the transverse fashion. The US images were registered to create model boundaries. A three dimensional ultrasound model was created using [employer] software. The model was reviewed against acquired US images. The planned needle targeting, based on prior acquisition of MRI imaging, was overlaid on the ultrasound images and targets confirmed through ultrasound review. Adjustments were then made between real time and projected model targeting locations. Based on pre-planning evaluation 14 targets had been identified. These included 3 targets of the PI-RADS 4 right mid peripheral zone lesion identified lesion/s. He tolerated the procedure well. Was transferred to stable condition in the PACU. Printed instructions regarding antibiotic use and common side effects such as low-grade temperature, potential infection and bleeding were given Pathology: 14 core prostate biopsy CPT 57941 Modifier 22 for complexity of procedure execution (Perineal prostate biopsy) CPT code 62101: Transrectal ultrasound; this is a diagnostic test for evaluation of the prostate and surrounding structures, looking for abnormalities or suspicious areas worrisome for cancer CPT code 31930: Ultrasonic guidance for needle placement (eg, biopsy, aspiration, injection, localization device), imaging supervision and interpretation CPT 39395: 3D rendering with interpretation and reporting of computed tomography (CT), MRI, ultrasound, or other tomographic modality with image postprocessing under concurrent supervision; not requiring image postprocessing on an independent workstation
[2025-04-23 12:19] VITALS: BP 113/65; PULSE 82; RESP 18; TEMP 36.2; O2SAT 92
[2025-04-23 12:24] VITALS: BP 107/72; PULSE 79; RESP 17; O2SAT 94
[2025-04-23 12:29] VITALS: BP 110/74; PULSE 76; RESP 17; O2SAT 92
[2025-04-23 12:34] VITALS: BP 113/81; PULSE 72; RESP 17; O2SAT 94
[2025-04-23 12:49] VITALS: BP 122/86; PULSE 69; RESP 18; TEMP 36.2; O2SAT 96
== END 2025-04-23 13:13 | disposition home or self-care (01) ==
PROVIDERS: PCP Internal Medicine; Visit Provider Urology
PROC: (CPT 55700; principal; 2025-04-23 11:10)
DX: C61 Malignant neoplasm of prostate (principal); R97.20 Elevated prostate specific antigen [PSA]; N39.43 Post-void dribbling; R35.1 Nocturia; N52.01 Erectile dysfunction due to arterial insufficiency; R68.82 Decreased libido; C81.90 Hodgkin lymphoma, unspecified, unspecified site; I42.0 Dilated cardiomyopathy; I50.30 Unspecified diastolic (congestive) heart failure; I11.0 Hypertensive heart disease with heart failure; E78.5 Hyperlipidemia, unspecified; J45.909 Unspecified asthma, uncomplicated; M10.9 Gout, unspecified; Z79.51 Long term (current) use of inhaled steroids; Z79.899 Other long term (current) drug therapy; Z79.84 Long term (current) use of oral hypoglycemic drugs; Z98.890 Other specified postprocedural states
CPT/HCPCS: 55706; 88305; 88344; J1100; J2003; J2405; J2704; J3010

== ENCOUNTER → 2025-04-23 09:06 | Outpatient (BNV) | payer OTHER, SELFPAY | PROVIDERS: PCP Internal Medicine; Visit Provider Urology | DX: R97.20 Elevated prostate specific antigen [PSA] (principal) | CPT/HCPCS: 55706; 76872; 76942 ==

== ENCOUNTER 2025-05-08 15:00 | Outpatient (AMB) | payer OTHER, SELFPAY ==
--- NOTE | 2025-05-08 15:01 | A.OFFVIS_ITS ---
Intake Visit Reasons: Prostate biopsy results Intake Note: Patient presents today for tele visit for prostate biopsy results Meds: Tadalafil, Finasteride Allergies to Antibiotic- No Known Allergies Blood Thinner- None Veneer Stapler Required: No Accompanied by: Self / Same As Patient Allergies No Known Allergies Allergy (Verified 05/08/25 15:02) HPI Comments Details: Johnny is a very pleasant 64 year old male patient of Dr. Herrera. He has a past medical history of Hodgkin's lymphoma and dilated cardiomyopathy. - prostate cancer Telemedicine Evaluation 15 min Consultation [employer] Video Discussed biopsy results Initial focus will be on obtaining genetics Start finasteride Good candidate for active surveillance Six-month follow-up repeat PSA Prostate cancer - low volume, grade group 1 Histologic type: Acinar adenocarcinoma Vendor score: 3+3=6 (A 3.0, C 3.5 C 3.5 B 2.5) Grade group: 1 (A,C,G,M) Tumor quantitation: Number cores positive: 4 Total number of cores: 13 Periprostatic fat inv.: Not identified Seminal vesicle inv.: Not identified Perineural inv.: Present (M) LVI: Not identified MRI 1.5 cm focus of abnormal signal intensity in the anterior aspect of the right peripheral zone in the mid gland PSA: 05/04 8.5, 09/03 7.6, 03/05 3.1, 12/04 4.6, 12/05 11.3, 01/05 6.5 % free PSA 7.2. Testosterone 03/05 400, SHBG 29.5, free testosterone 8.23, Testosterone 12/04 339. [facility] Medical History (Updated 05/08/25 @ 15:50 by Jarret Barragan MD) (HFpEF) heart failure with preserved ejection fraction Mild asthma HLD (hyperlipidemia) HTN (hypertension) Gout Hodgkin's lymphoma Surgical History (Updated 04/23/25 @ 09:36 by Alejandra Dela Cruz RN) History of lung surgery History of bronchoscopy Social History Patient Tobacco Use Status: Never used Tobacco Review of Systems Const All systems reviewed & are unremarkable except as noted in HPI and below Reports no additional complaints Resp Reports no additional complaints GI Reports no additional complaints Reports as per HPI Musc Reports no additional complaints Physical Exam Telemedicine evaluation Appropriate responses Regular breathing rate and rhythm HEENT Head: Yes normal to inspection Ears: hearing grossly normal bilaterally Eyes General: appearance normal, both eyes and all related structures Neck Neck: Yes normal visual inspection Chest Chest palpation & inspection: normal inspection of the chest Resp Effort & Inspection: normal respiratory effort and able to speak in complete sentences Telehealth Telehealth Telehealth Platform: [employer] Location of provider rendering services: practice address Location of patient: address on file Patient Identification confirmed using: Name, : Yes Telehealth method: video Patient verbally consented to treatment: Yes Patient verbally consented to billing insurance company: Yes Patient informed of any privacy concerns related to visit: Yes Minutes spent on Phone/Video with Pt.: 15 Assessment & Plan Assessment & Plan (1) Hormone sensitive prostate cancer: Code(s): C61 - Malignant neoplasm of prostate; Z19.1 - Hormone sensitive malignancy status Category: Medical Plan Prolaris genetics Start finasteride Four month follow-up PSA Orders: Orders Prostate Specific Antigen 4 Months C61 - Malignant neoplasm of prostate, Z19.1 - Hormone sensitive malignancy status Patient Instructions: This note is constructed using voice recognition software. While every effort has been made to ensure accuracy environmental geologist errors may have been included. Imaging studies, laboratory and physical exam results were discussed and reviewed in detail. No major barriers to patient understanding were identified. An opportunity to ask questions regarding the treatment plan was provided. All questions were answered. The patient expressed understanding and agreement with the above treatment plan. The patient is aware they should contact our office by phone for worsening of their current condition or the appearance of new urologic symptoms. Compliance is encouraged with any medications and followup testing that is ordered. It is a privilege to participate in the urologic care of your patient. If you have any questions or concerns regarding treatment for the above conditions, or other urologic issues, please do not hesitate to contact me. The office telephone contact is [phone]. Sincerely, Dr Jarret Barragan MD, [facility] - Urology Compassionate Specialist Care for the Genitourinary System Coding Level of Care Code Tele Est Pt Level 4 (45073) Diagnoses Hormone sensitive prostate cancer C61; Z19.1
--- OUTSIDE RECORDS SUMMARY | 2025-05-08 15:55 | XMS_ITS | Clinical Summary ---
Author Organization [facility] Address [address] [place] [address] Care Team Providers Care Contract Designer Name Role Phone John Herrera MD Primary [...] age to complete this topic Care Teams Contract Designer Relationship Specialty Start Date End Date John Herrera MD PCP - General Internal Medicine 04/13/17
--- OUTSIDE RECORDS SUMMARY | 2025-05-08 15:55 | XMS_ITS | Clinical Summary ---
Author Organization [facility] Address [address] [place] [address] Phone Care Team Providers Care Tree Worker Name Role Phone John Herrera MD Primary Care Provider [phone] Encounters Date Type Department Care Team Description 02/26/2025 Telephone [facility] [address] [place] [id number] Tiffani Aden MA from Last 3 Months [...] patient's age to complete this topic Insurance [employer] Care Teams Tree Worker Relationship Specialty Start Date End Date John Herrera MD [address] [place] [id number] PCP - General Internal Medicine 04/13/17
== END 2025-05-08 16:41 | disposition home or self-care (01) ==
LOC: HO.HUSH 15:00
PROVIDERS: PCP Internal Medicine; Visit Provider Urology
DX: C61 Malignant neoplasm of prostate (principal); Z19.1 Hormone sensitive malignancy status
CPT/HCPCS: 99214

== ENCOUNTER 2025-08-22 08:07 | Outpatient (AMB) | payer OTHER, SELFPAY ==
--- NOTE | 2025-08-22 08:23 | MHC.OFFVIS ---
Intake Visit Reasons: 4M PSA/Prolaris/PVR(set) Intake Note: Reason for Visit: 3M PSA/PVR/Prolaris Follow Up Urology Meds: Tadalafil, Finasteride Blood Thinners: None Labs: PSA- 7.3 (08/06/2025) Prolaris Report: 06/28/2025 Imaging: None Last PVR: 15ml PVR: 0ml Prover Required: No Accompanied by: Self / Same As Patient Allergies No Known Allergies Allergy (Verified 08/22/25 08:27) HPI Comments Details: Johnny is a very pleasant 64 year old male patient of Dr. Herrera. He has a past medical history of Hodgkin's lymphoma and dilated cardiomyopathy. - prostate cancer Prolaris results cell cycle score at 2.5. Overall recommendation active surveillance Discussed erections Add 20 mg on demand to daily tadalafil Prostate cancer - low volume, grade group 1 Histologic type: Acinar adenocarcinoma Rosalind score: 3+3=6 (A 3.0, C 3.5 C 3.5 B 2.5) Grade group: 1 (A,C,G,M) Tumor quantitation: Number cores positive: 4 Total number of cores: 13 Periprostatic fat inv.: Not identified Seminal vesicle inv.: Not identified Perineural inv.: Present (M) LVI: Not identified MRI 1.5 cm focus of abnormal signal intensity in the anterior aspect of the right peripheral zone in the mid gland PSA: 05/04 8.5, 09/03 7.6, 03/05 3.1, 12/04 4.6, 12/05 11.3, 01/05 6.5 % free PSA 7.2, 08/07 7.3 Testosterone 03/05 400, SHBG 29.5, free testosterone 8.23, Testosterone 12/04 339. [facility] Medical History (HFpEF) heart failure with preserved ejection fraction Mild asthma HLD (hyperlipidemia) HTN (hypertension) Gout Hodgkin's lymphoma Surgical History History of lung surgery History of bronchoscopy Social History Patient Tobacco Use Status: Never used Tobacco Review of Systems Const Denies chills and Denies fever(s) Card Reports no additional complaints and Denies syncope Resp Denies cough GI Denies abdominal pain and Denies heartburn Reports as per HPI and Denies change in libido Neuro Denies syncope Psych Denies change in libido Endo Denies change in libido Physical Exam Const General: cooperative, healthy appearing, comfortable and no acute distress Orientation/consciousness: patient oriented x3 HEENT Face and sinus: Yes normal facial exam Mouth: moist mucous membranes Neck Neck: Yes normal visual inspection, Yes full ROM and Yes trachea midline Chest Chest palpation & inspection: normal inspection of the chest Resp Effort & Inspection: normal respiratory effort, able to speak in complete sentences and no respiratory distress GI Inspection: Yes normal to inspection Back/Spine/Pelvis Cervical Spine: normal cervical lordosis Thoracic/Lumbar Spine: thoracic and lumbar spine normal to inspection Skin General skin exam: no rashes or lesions noted Neuro General: patient oriented x3, gait normal, tone normal and moves all extremities Extrem General: Yes normal to inspection and Yes capillary refill normal Office Procedures Post Void Residual Post Residual Void Post Void Residual (PVR): 0 [id number] Void Residual by ultrasound Assessment & Plan Assessment & Plan (1) Bladder outlet obstruction: Code(s): N32.0 - Bladder-neck obstruction Category: Medical (2) Hormone sensitive prostate cancer: Code(s): C61 - Malignant neoplasm of prostate; Z19.1 - Hormone sensitive malignancy status Category: Medical Plan Six-month follow-up check lab work Orders: Orders Prostate Specific Antigen 5 Months C61 - Malignant neoplasm of prostate, Z19.1 - Hormone sensitive malignancy status AMB Post Void Residual by ultrasound Today R35.1 - Nocturia Testosterone, Total 5 Months C61 - Malignant neoplasm of prostate, Z19.1 - Hormone sensitive malignancy status Medications: Refilled tadalafil (Cialis) [facility] [id number] [facility] 20 mg PO DAILY PRN 45 tabs 3RF sexual activity 90 days C61 - Malignant neoplasm of prostate, Z19.1 - Hormone sensitive malignancy status tadalafil 5 mg PO DAILY 90 tabs 1RF sexual activity 90 days N52.01 - Erectile dysfunction due to arterial insufficiency, R68.82 - Decreased libido Patient Instructions: This note is constructed using voice recognition software. While every effort has been made to ensure accuracy casino surveillance officer errors may have been included. Imaging studies, laboratory and physical exam results were discussed and reviewed in detail. No major barriers to patient understanding were identified. An opportunity to ask questions regarding the treatment plan was provided. All questions were answered. The patient expressed understanding and agreement with the above treatment plan. The patient is aware they should contact our office by phone for worsening of their current condition or the appearance of new urologic symptoms. Compliance is encouraged with any medications and followup testing that is ordered. It is a privilege to participate in the urologic care of your patient. If you have any questions or concerns regarding treatment for the above conditions, or other urologic issues, please do not hesitate to contact me. The office telephone contact is [phone]. Sincerely, Dr Jarret Barragan MD, [facility] - Urology Compassionate Specialist Care for the Genitourinary System Coding Level of Care Code Est Pt Level 3 (79093) Complex visit Add On G2211 Diagnoses Bladder outlet obstruction N32.0 Hormone sensitive prostate cancer C61; Z19.1 CPT Codes Post Residual Void - PVR CPT Code: 60410-Zldm Void Residual by ultrasound ([id number])
== END 2025-08-22 08:52 | disposition home or self-care (01) ==
LOC: HO.HUSH 08:08
PROVIDERS: PCP Internal Medicine; Visit Provider Urology
DX: N32.0 Bladder-neck obstruction (principal); C61 Malignant neoplasm of prostate; Z19.1 Hormone sensitive malignancy status
CPT/HCPCS: 99213

== ENCOUNTER → 2025-08-22 08:07 | Outpatient (BNVA) | payer OTHER, SELFPAY | PROVIDERS: PCP Internal Medicine; Visit Provider Urology | DX: C61 Malignant neoplasm of prostate (principal); N32.0 Bladder-neck obstruction; N52.01 Erectile dysfunction due to arterial insufficiency; R68.82 Decreased libido; Z19.1 Hormone sensitive malignancy status; Z79.899 Other long term (current) drug therapy | CPT/HCPCS: 51798 ==